=== PATIENT | male | born 1940 | race Caucasian/White ===

== ENCOUNTER → 2017-07-24 | Outpatient (CLI) | payer OTHER, BC ==
[2015-07-23 08:20] VITALS: BP 142/74; PULSE 56
[~2017-07-24] MED LIST: AMB5 PO; ASPEC81 PO; FAMO20TA11 PO; LISI5TAB3 PO; METO25TA3 PO; NTRGSL/4 UT; ROSU20TA PO
[2017-07-24 12:58] VITALS: BP 134/80; PULSE 58; TEMP 36.4; O2SAT 100
--- NOTE | 2017-07-24 13:56 | Radiation Oncology Follow-Up ---
Radiation Oncology Follow-Up Date of Visit Jul 24, 2017. 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 Today he gave an AUA score of 6. Last year he gave a score of 7. He has had no issues with rectal bleeding. He completed and expanded prostate cancer index composite for clinical practice and gave a score of 0 of 12 urinary incontinence symptoms. He gave a score of 0 of 12 in urinary irritation symptoms. He gave a score of 0 of 12 and bowel symptoms. He gave a score of 5 of 12 and sexual symptoms. He gave a score of 0 of 12 and hormonal vitality symptoms. His total was 5 of 60. He continues regular follow-up with his primary care provider and has his PSAs performed at [facility]. He had a PSA 05/16/2016. And this was less than 0.01. He wished to continue to have these at [facility] and will have this performed with his next laboratory studies that we ordered by his primary care physician. Allergies Coded Allergies: No Known Allergies (Unverified , 07/13/10) Home Medications Scheduled Aspirin Enteric Coated (Ecotrin Or Generic *), 81 MG PO DAILY Lisinopril (Zestril), 5 MG PO DAILY Metoprolol Succ (Toprol Xl) (Toprol-Xl), 25 MG PO DAILY Nitroglycerin (Nitrostat), 0.4 MG UT PRN Rosuvastatin Calcium (Crestor), 1 TAB PO DAILY Zolpidem Tartrate (Ambien *), 5-10 MG PO HS PRN Scheduled PRN Famotidine (Pepcid), 10 MG PO BID PRN for Indigestion Review of Systems Gastrointestinal: Symptoms: WNL Oral: Symptoms: No Problems Respiratory: Symptoms: WNL Urinary: Symptoms: WNL, Nocturia Comments: Nocturia x 2, See AUA Skin: Symptoms: No Problems Physical Exam Vital Signs Date Time Temp Pulse Resp B/P (MAP) Pulse Ox O2 Delivery O2 Flow Rate FiO2 07/24/17 12:58 36.4 58 16 134/80 100 Fatigue: None General Appearance: no apparent distress Eyes: normal inspection, EOMI ENT: normal ENT inspection, hearing grossly normal Neck: no adenopathy, thyroid normal Respiratory/Chest: lungs clear, no respiratory distress, no accessory muscle use Cardiovascular: regular rate, rhythm, no gallop, no murmur Abdomen: non tender, soft, no organomegaly Anal / Rectum: Normal sphincter tone. No rectal masses no rectal bleeding. Extremities: no pedal edema Neurologic/Psychiatric: no motor/sensory deficits, alert, normal mood/affect Skin: warm/dry Pain Management Patient Reports Pain: No Patient Preferred Pain Scale: 0 - 10 Initial Pain Intensity: 0.0 Pain Management Plan He denies pain therefore requires no pain management. Laboratory Laboratory Results: were reviewed Pathology Pathology Results: not applicable Imaging Imaging Studies: not applicable Assessment & Plan Plan: Continue regular follow-up with his primary care provider. He is going to have his next PSA performed at [facility] with his next blood draw. He has had no signs of recurrence of the prostate cancer as well as the radiation proctitis. He does not follow-up in urology and therefore will return in 1 year. He may call if he has any questions or concerns. Total Time In Follow-Up I spent 20 minutes speaking to the patient performing examination. I started 15 minutes reviewing information in completing this note. Copy To Zach Scott M.D.
== END | disposition home or self-care (01) ==
LOC: C.ONC 12:37
PROVIDERS: ATTEND Physician Assistant Medical
DX: Z08 Encounter for follow-up examination after completed treatment for malignant neoplasm (principal); Z92.3 Personal history of irradiation; Z85.46 Personal history of malignant neoplasm of prostate